=== PATIENT | male | born 2000 | race Caucasian/White ===

== ENCOUNTER 2021-04-11 18:42 | Emergency (ER) | payer BC, SELFPAY ==
--- NOTE | ~2021-04-11 | XR_ITS ---
EXAMINATION: XR abdomen/kub 1V INDICATION: Left-sided abdominal pain TECHNIQUE: Supine views of the abdomen were obtained on 2 radiographs. COMPARISON: None FINDINGS: The bowel gas pattern is normal. No dilated loops of bowel are evident. The visualized lung bases are clear. IMPRESSION: 1. . No radiographic correlate for the patient's symptoms. Reviewed, dictated and finalized at location [facility].
[2021-04-11 19:29] VITALS: BP 128/80; PULSE 92; RESP 17; TEMP 37; O2SAT 100
[2021-04-11 19:42] LABS: Basophils Percent Auto 0.4 % (0.2-1.2); Eosinophils Absolute Auto 0.1 K/mm3 (0-0.3); Eosinophils Percent Auto 1.3 % (0-4.4); Hematocrit 42.9 % (42.0-52.0); Hemoglobin 14.7 g/dL (14.0-18.0); Immature Granulocyte Absolute 0.01 K/mm3 (0.00-0.031); Immature Granulocyte Percent A 0.2 % (0-0.5); Lymphocytes Percent Auto 19.1 % (18.3-44.2); Mean Corpuscular HGB Conc 34.3 g/dl (32-36); Mean Corpuscular Hemoglobin 29.9 pg (26-34); Mean Corpuscular Volume 87.4 fl (80-100); Monocytes Absolute Auto 0.5 K/mm3 (0.1-0.6); Monocytes Percent Auto 11.3 % (2.6-8.5); Neutrophils Absolute Auto 3.2 K/mm3 (1.3-6.7); Neutrophils Percent Auto 67.7 % (45.5-73.1); Platelet Count Result 171 k/mm3 (150-375); Red Blood Count 4.91 M/mm3 (4.6-6.20); White Blood Count 4.7 K/mm3 (4.5-10.0)
[2021-04-11 19:52] LABS: Alanine Aminotransferase 12 U/L (4-50); Albumin Level 5.1 g/dL (3.5-5.1); Alkaline Phosphatase 98 U/L (38-126); Anion Gap 13 mmol/L (8-16); Aspartate Amino Transferase 20 U/L (17-59); Bilirubin,Total 0.6 mg/dL (0.2-1.3); Blood Urea Nitrogen 12 mg/dL (9-20); Calcium 10.4 mg/dL (8.4-10.2); Carbon Dioxide 25 mmol/L (22-30); Chloride 101 mmol/L (98-107); Estimated Glomerular Filt Rate > 60; Glucose 101 mg/dL (65-110); Lipase 39 U/L (23-300); Potassium 4.1 mmol/L (3.4-5.0); Sodium 139 mmol/L (137-145)
--- NOTE | 2021-04-11 20:11 | ED.GENADULT ---
HPI - General Adult General Chief complaint: Abdominal Pain Stated complaint: ABD pain 2 months Time Seen by Provider: 04/11/21 19:56 Source: patient and RN notes reviewed Mode of arrival: ambulatory Limitations: no limitations History of Present Illness HPI narrative: Patient is a 21-year-old male who presents to emergency department for evaluation of left upper abdominal pain for the last 2 months his primary care to order blood work and given him nausea medicine which has not improved patient notes aching pain that is intermittent notes that he has had some straining and constipation during this. Patient denies any rectal bleeding melena presents per private vehicle in no distress patient denies sick contacts or other complaints or similar occurrence in the past Related Data Allergies Allergy/AdvReac Type Severity Reaction Status Date / Time No Known Allergies Allergy Verified 04/11/21 20:59 Review of Systems Review of Systems: All systems reviewed & are unremarkable except as noted in HPI and below PMFSH Past Medical History Medical History (Updated 04/11/21 @ 21:02 by Marcelino Leyva PA-C) Anxiety Depression Surgical History Surgical History No history of previous surgery Family History Family History Father Depression Social History Social History Social History: Single Smoking status: Never smoker Second hand tobacco smoke exposure: No Alcohol intake: never Substance use: never Substance use type: does not use Gender identity (if verbalized by the patient): Male Exam Narrative: GENERAL: Well-appearing, well-nourished, and in no acute distress. HEAD: Normocephalic, atraumatic. EYES: PERRLA and EOMI. ENT: Nares clear, no rhinorrhea or epistaxis. Mucous membranes moist. CHEST: Clear to auscultation. No respiratory distress. No wheezes rales or rhonchi HEART: Regular rate and rhythm. No murmur heard. Normal peripheral pulses. ABDOMEN: Soft, left upper abdominal tenderness no rebound or guarding noted, nondistended, normal active bowel sounds. EXTREMITIES: Normal range of motion. No edema. SKIN: Warm, dry, no rash. NEURO: No focal deficits. Alert and oriented x3. PSYCH: Normal mood and affect. Course Course Emergency Course: Patient presented with abdominal pain no clear etiology for his symptoms have been present for 2 months he has no emesis he will be discharged home with outpatient follow-up with gastroenterology and primary care Vital Signs Vital signs: Vital Signs Temperature 98.6 F 04/11/21 19:29 Pulse Rate 92 04/11/21 19:29 Respiratory Rate 04/11/21 19:29 Blood Pressure 128/80 04/11/21 19:29 Pulse Oximetry 100 04/11/21 19:29 Temperature 98.6 F 04/11/21 19:29 Pulse Rate 92 04/11/21 19:29 Respiratory Rate 04/11/21 19:29 Blood Pressure 128/80 04/11/21 19:29 Pulse Oximetry 100 04/11/21 19:29 Medical Decision Making MDM Narrative Medical decision making narrative: Patient evaluated for abdominal pain in the emergency department no concerning findings at this time it has been 2 months duration patient felt appropriate for outpatient reevaluation will be referred back to primary care for further risk ratification patient is aware of this he is afebrile nontoxic-appearing no distress without emesis and at this time felt appropriate for outpatient reevaluation he has been provided with reasons to return and agrees to do so if symptoms worsen Vital Signs Vital Signs: Vital Signs Temperature 98.6 F 04/11/21 19:29 Pulse Rate 92 04/11/21 19:29 Respiratory Rate 04/11/21 19:29 Blood Pressure 128/80 04/11/21 19:29 Pulse Oximetry 100 04/11/21 19:29 Temperature 98.6 F 04/11/21 19:29 Pulse Rate 92 04/11/21 19:29 Respiratory Rate 04/11/21 19:
[2021-04-11] MEDS: HYOSCYAMINE SULFATE 0.125 MG TABLET PO (20:23)
[2021-04-11 20:52] LABS: Add Urine Microscopic? YES; Appearance Urine Clear (Clear); Bacteria Urine Trace /hpf; Bilirubin Urine Negative (Negative); Blood Urine Negative (Negative); Color Urine Yellow (Yellow); Glucose Urine UA Negative (Negative); Ketones Urine 1+ mg/dL (Negative); Leukocyte Esterase Ur Negative LEU/UL (Negative); Mucus Urine Rare /lpf; Nitrate Urine Negative (Negative); Protein Urine Negative (Negative); RBC Urine 0-2 /hpf (0-2); Specific Grav Ur 1.023 (1.001-1.035); WBC Urine 0-3 /hpf
[2021-04-11 21:08] VITALS: BP 123/90; PULSE 100; RESP 18; TEMP 36.4; O2SAT 99
== END 2021-04-11 21:15 | disposition home or self-care (01) ==
PROVIDERS: Emergency Provider Emergency Medicine; PCP Family Medicine
DX: R10.12 Left upper quadrant pain (principal); F41.9 Anxiety disorder, unspecified; F32.9 Major depressive disorder, single episode, unspecified
CPT/HCPCS: 36415; 74018; 80053; 81001; 83690; 85025; 99283; A9270

== ENCOUNTER → 2021-05-06 13:10 | Outpatient (CLI) | payer BC, SELFPAY ==
--- NOTE | ~2021-05-06 | CT_ITS ---
EXAMINATION: CT abdomen pelvis w con DATE: 05/06/2021 13:37 INDICATION: Left upper quadrant abdominal pain TECHNIQUE: Computed tomography (CT) of the abdomen and pelvis was performed with 100 cc Omnipaque 350 intravenous contrast. Automated exposure control and iterative reconstruction technique were employe d. Exam dose: 188.05 mGy-cm total exam DLP. COMPARISON: 04/11/2021 KUB FINDINGS: The lung bases are clear of infiltrate or consolidation. Normal heart size. No pericardial or pleural effusion. The liver, gallbladder, bile ducts, spleen, pancreas, pancreatic duct, and adrenal glands and kidneys appear normal. There are some probable splenule along the inferomedial aspect of the spleen, isodens e with the spleen. Normal caliber of the abdominal aorta. No intraperitoneal or retroperitoneal or pe lvic mass lesion or adenopathy or ascites is detected. No CT evidence of appendicitis is noted. No bowel obstruction, bowel wall thickening, pneumatosis or intraperitoneal free air is detected. Included skeletal structures are unremarkable. IMPRESSION: No significant abnormality Reviewed, dictated and finalized at [facility]. Reviewed, dictated and finalized at location [facility]. IMPRESSION: No significant abnormality
== END ==
PROVIDERS: PCP Family Medicine
DX: R10.12 Left upper quadrant pain (principal)
CPT/HCPCS: 74177; Q9967